=== PATIENT | male | born 1995 | race Caucasian/White ===

== ENCOUNTER 2023-09-30 22:45 | Emergency (ER) | payer OTHER ==
[2023-09-30 23:48] LABS: BASOPHILS PERCENT AUTO 0.1 % (0.0-1.0); EOSINOPHILS PERCENT AUTO 2.1 % (1.0-3.0); HEMATOCRIT 42.1 % (40.0-54.0); HEMOGLOBIN 14.4 g/dL (14.0-18.0); LYMPHOCYTES PERCENT AUTO 39.6 % (20.5-50.1); MEAN CORPUSCULAR HEMOGLOBIN 31.2 pg (27.0-34.0); MEAN CORPUSCULAR HGB CONC 34.2 g/dL (33.0-35.0); MEAN CORPUSCULAR VOLUME 91.3 fL (80-100); MONOCYTES PERCENT AUTO 9.7 % (2-8); NEUTROPHILS PERCENT AUTO 48.5 % (42.2-75.2); PLATELET COUNT,PLT 285 10^3/uL (150-450); RED BLOOD CELL COUNT 4.61 10^6/uL (4.6-6.2); WHITE BLOOD CELL COUNT,WBC 7.2 10^3/uL (5.0-10.0)
[2023-09-30] MEDS: Sodium Chloride 0.9% 10 ML Syringe FLUSH PRN (23:59)
[2023-10-01 00:12] LABS: A/G RATIO 1.2; ALANINE AMINOTRANSFERASE,ALT 58 U/L (16-63); ALBUMIN 4.6 g/dL (3.4-5.0); ALKALINE PHOSPHATASE 69 U/L (46-116); ANION GAP 13.7 mEq/L (7-13); ASPARTATE AMNIOTRANSFERASE,AST 26 U/L (15-37); BILIRUBIN TOTAL 0.4 mg/dL (0.2-1.0); BLOOD UREA NITROGEN,BUN 23 mg/dL (7-18); BUN/CREATININE RATIO 22.1 (No establ ref range); CALCIUM 8.9 mg/dL (8.5-10.1); CARBON DIOXIDE,CO2 28 mmol/L (21-32); CHLORIDE,CL 102 mmol/L (98-107); CREATININE 1.04 mg/dL (0.70-1.30); EST CRCL DRUG DOSING (CG) 101.52 mL/min; ESTIMATED GFR 102 mL/min (>=60); GLUCOSE RANDOM 106 mg/dL (70-99); MAGNESIUM 2.1 mg/dL (1.8-2.4); POTASSIUM,K 3.7 mmol/L (3.5-5.1); PROTEIN TOTAL,TP 8.4 g/dL (6.4-8.2); SODIUM,NA 140 mmol/L (136-145); TSH ULTRASENSITIVE 2.63 uIU/mL (0.36-3.74)
[2023-10-01] MEDS: Iopamidol 612 MG/ML 100 ML Bottle IVPUSH ONE (00:12)
[2023-10-01 00:13] LABS: C-REACTIVE PROTEIN < 0.50 ng/dL (<=0.50)
== END 2023-10-01 00:49 | disposition home or self-care (01) ==
LOC: DL.ED 22:45
DX: R07.2 Precordial pain (principal); Z91.018 Allergy to other foods
CPT/HCPCS: 36415; 70460; 80053; 83735; 84443; 84484; 85025; 86140; 93005; 93010; 99284; 99285; Q9967; J3490